=== PATIENT | female | born 1995 | race Caucasian/White ===

== ENCOUNTER 2016-03-25 18:46 | Emergency (ER) | payer BC ==
[~2016-03-25] VITALS: Ht 160 cm; Wt 69.0 kg
[2016-03-25 19:02] VITALS: TEMP 37.3; Ht 160 cm; Wt 69.0 kg
[2016-03-25] MEDS ORDERED: BCPILLS PO (19:17)
--- NOTE | 2016-03-25 20:04 | DIAGNOSTIC IMAGING REPORT ---
SINGLE VIEW CHEST CLINICAL HISTORY: Cough. FINDINGS: An AP, portable, upright chest radiograph is obtained. No prior studies are available for comparison at the time of dictation. The cardiomediastinal silhouette is unremarkable. The lungs and pleural spaces are clear. No pneumothorax is seen. The bony thorax is grossly intact. IMPRESSION: No active disease in the chest. Electronically signed by: Sai Erazo M.D. 03/25/2016 8:02 PM Dictated Date/Time: 03/25/2016 8:02 PM
--- NOTE | 2016-03-25 20:44 | EMERGENCY ROOM VISIT NOTE ---
History Report prepared by Garcia: Genia Cardona Under the Supervision of: Dr. Calos Hand D.O. First contact with patient: 19:10 Chief Complaint: REFERRED BY DOCTOR Stated Complaint: CHEST AND THROAT PAIN History of Present Illness The patient is a 21 year old female who presents to the Emergency Room following a referral from [facility] to be evaluated for persistent chest and throat tightness that started two days ago. She rates her discomfort as a 4/10. Two days ago, the patient woke up with a sore throat and tightness in her throat and chest, and these symptoms have persisted. The patient has a cough due to the "tickling" feeling in her throat. For these symptoms, the patient went to [facility]. She was told to go to the ED for a d-dimer test to rule out a blood clot in her lungs. The patient notes that no testing was performed at [facility]. Her last menstrual period was 1.5 weeks ago. She denies congestion, fevers. Source of History: patient Onset: 2 days ago Position: chest Symptom Intensity: 4/10 Quality: other (chest tightness, throat tightness ) Timing: other (persistent) Associated Symptoms: No fevers Note: She further denies congestion. Review of Systems See HPI for pertinent positives & negatives. A total of 10 systems reviewed and were otherwise negative. Past Medical & Surgical Medical Problems: (1) No Known Active Medical Problems Family History Hypertension Social History Smoking Status: Never Smoker Drug Use: none Housing Status: lives with roommate Occupation Status: [employer] student Current/Historical Medications Scheduled Control Pills ( Control Pills), 1 TAB PO DAILY Allergies Coded Allergies: No Known Allergies (Unverified , 03/25/16) Physical Exam Vital Signs Date Time Temp Pulse Resp B/P Pulse Ox O2 Delivery O2 Flow Rate FiO2 03/25/16 20:50 96 18 130/88 99 03/25/16 19:02 37.3 103 18 127/75 97 Room Air Physical Exam CONSTITUTIONAL/VITAL SIGNS: Reviewed / noted above. GENERAL: Non-toxic in appearance. INTEGUMENTARY: Warm, dry, and [place]. HEAD: Normocephalic. EYES: without scleral icterus or trauma. ENT/OROPHARYNX: clear and moist. LYMPHADENOPATHY/NECK: Is supple without lymphadenopathy or meningismus. RESPIRATORY: Lungs clear and equal. CARDIOVASCULAR: Regular rate and rhythm. GI/ABDOMEN: Soft and nontender. No organomegaly or pulsatile mass. No rebound or guarding. Normal bowel sounds. EXTREMITIES: Warm and well perfused. BACK: No CVA tenderness. NEUROLOGICAL: Intact without focal deficits. PSYCHIATRIC: normal affect. MUSCULOSKELETAL: Normally developed with good muscle tone. Medical Decision & Procedures ER Provider Diagnostic Interpretation: X ray results and stated below per my interpretation and radiology interpretation. SINGLE VIEW CHEST CLINICAL HISTORY: Cough. FINDINGS: An AP, portable, upright chest radiograph is obtained. No prior studies are available for comparison at the time of dictation. The cardiomediastinal silhouette is unremarkable. The lungs and pleural spaces are clear. No pneumothorax is seen. The bony thorax is grossly intact. IMPRESSION: No active disease in the chest. Electronically signed by: Sai Erazo M.D. 03/25/2016 8:02 PM Dictated Date/Time: 03/25/2016 8:02 PM Laboratory Results Test 03/25/16 19:42 Bedside D-Dimer 397 ng/mlFEU (0-450) Laboratory results as stated above per my review. ECG Indication: chest pain Rate (beats per minute): 105 Rhythm: sinus tachycardia Findings: no acute ischemic change, no ectopy ED Course 1909: Previous medical records were reviewed. The patient was evaluated in room B2. A complete history and physical examination was performed. 2043: On reevaluation, the patient is doing well. I discussed the results and findings with the patient. She verbalized agreement of the treatment plan. The patient was discharged home. Medical Decision The patient is a 21 year old female who presents to the ED with complaints of chest tightness. The patient reports a dry throat as well as some tightness in her chest. This is been going on for the past couple of days. She reports a tickle in her throat and in her lungs. This occasionally makes her feel like she has to cough. She was seen at [facility] and sent here for a d-dimer to rule out a blood clot. They did not do any other testing, per the patient. She has had no fevers. Denies any other significant symptoms. She states that her throat feels dry. Her physical exam was essentially normal. EKG shows a sinus rhythm at a rate of 105. Chest x-ray did not show acute disease. D- dimer is negative. The patient was told results and felt to be safe for discharge. Differential diagnosis: Etiologies such as cardiac ischemia, aortic dissection, pulmonary embolism, pneumonia, pneumothorax, musculoskeletal, infections, pericarditis, myocarditis , esophageal rupture, gastrointestinal, as well as others were entertained. Impression Primary Impression: Cough Additional Impression: Chest pain, precordial Scribe Attestation The scribe's documentation has been prepared under my direction and personally reviewed by me in its entirety. I confirm that the note above accurately reflects all work, treatment, procedures, and medical decision making performed by me. Departure Information Dispostion Home / Self-Care Patient Instructions My [facility] Additional Instructions Expect symptoms to improve over the next 7-14 days. If no improvement or worsening, follow-up with [facility] services. Return for any worsening or new concerns. Problem Qualifiers
[2016-03-25 20:50] VITALS: BP 130/88; PULSE 96; O2SAT 99
== END 2016-03-25 20:51 | disposition home or self-care (01) ==
LOC: C.EDB 18:49
DX: R07.2 Precordial pain (principal); R05 Cough; R00.0 Tachycardia, unspecified; Z82.49 Family history of ischemic heart disease and other diseases of the circulatory system